=== PATIENT | male | born 1995 | race Caucasian/White ===

== ENCOUNTER 2025-01-23 12:06 | Emergency (ER) | payer OTHER ==
[~2025-01-23] VITALS: Ht 190.5 cm; Wt 120.1 kg
[2025-01-23 12:10] VITALS: BP 119/78; TEMP 97.6; O2SAT 97
== END 2025-01-23 12:38 | disposition home or self-care (01) ==
LOC: M ED 12:06
DX: L04.9 Acute lymphadenitis, unspecified (principal)